=== PATIENT | female | born 1985 | race African-American/Black ===

== ENCOUNTER 2017-01-25 16:43 | Emergency (ER) | payer MEDICAID, OTHER ==
[~2017-01-25] VITALS: Ht 165.1 cm; Wt 124.7 kg
[2017-01-25] MEDS ORDERED: Morphine Sulfate 4mg/ml Inj IM ONE (17:00)
[2017-01-25] MEDS ORDERED: NORCO 5-325 TA1 EAC1 ORAL (19:14)
[2017-01-25] MEDS ORDERED: IBUPROFEN600 MG ORAL (19:14)
[2017-01-25 19:24] VITALS: BP 128/78
--- NOTE | 2017-01-25 20:50 | Emergency Room Report ---
History of Present Illness General Chief Complaint: Lower Extremity Injury Source: Patient Present Illness [facility] The patient is a 31-year-old female presenting for left foot pain after falling at work today. 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 She denies hitting her head or loss of consciousness. Pain is a 10 out of 10 dull ache to the left foot and does not radiate. Worse with movement. She denies previous injury to the foot. She denies any numbness or tingling. She states that she is unable to bear any weight on the left foot. She denies any other symptoms Allergies: Coded Allergies: No Known Allergies (Unverified , 01/25/17) Patient History Past Medical History: see triage record Pertinent Family History: none Now: No Reviewed Nursing Documentation: PMH: Agreed, PSxH: Agreed Nursing Documentation-PMH Past Medical History: No Stated History Review of Systems All Other Systems: negative except mentioned in HPI Physical Exam Vital Signs Date Time Temp Pulse Resp B/P (MAP) Pulse Ox O2 Delivery O2 Flow Rate FiO2 01/25/17 16:34 98.1 80 16 130/80 98 Room Air Sp02 EP Interpretation: reviewed, normal General Appearance: no apparent distress, alert, GCS 15, non-toxic Head: normocephalic, atraumatic Eyes: bilateral eye normal inspection, bilateral eye PERRL ENT: hearing grossly normal, normal pharynx, no angioedema, normal voice Neck: full range of motion, supple/symm/no masses Musculoskeletal: no calf tenderness, decreased range of motion - L ankle and L toes, swelling - L dorsum of foot, tender - TTP diffusely to L ankle and L dorsum of foot Neurologic: alert, oriented x3, responsive, motor strength/tone normal, sensory intact, speech normal Psychiatric: judgement/insight normal, memory normal, mood/affect normal, no suicidal/homicidal ideation Skin: normal color, no rash, warm/dry, well hydrated Lymphatic: no adenopathy Procedures Splinting Splinting : Consent: Verbal Location: L leg Hand-Made Type: plaster Splint: poserior short Pre-Proc Neuro Vasc Exam: normal Post-Proc Neuro Vasc Exam: normal Patient Tolerated: Well Complications: None Medical Decision Making PA Attestation Dr. Lemons is my supervising physician. Patient management was discussed with my supervising physician Diagnostic Impression: Primary Impression: Foot fracture, left Qualified Codes: S92.902A - Unspecified fracture of left foot, initial encounter for closed fracture ER Course The patient is a 31-year-old female presenting for left foot pain Ddx considered include but not limited to sprain/strain, fracture, contusion Physical exam: Musculoskeletal: There is diffuse tenderness to palpation over the left ankle and left dorsum of foot. Swelling over the dorsal aspect. No active range of motion of the left ankle or left toes due to pain. Sensation is intact DP pulse 2+ X-ray of the left ankle and left foot reveal fractures of the metatarsals The patient is given IM morphine for pain with good relief. Right leg posterior splint is placed with crutches She will FU with PMD and orthopedics. ER precautions given Other X-Ray Diagnostic Results Other X-Ray Diagnostic Results #1: X-Ray ordered: L foot # of Views/Limited Vs Complete: 3 View Indication: Pain EP Interpretation: Yes Interpretation: no dislocation, no soft tissue swelling, other - fracture of metatarsals Impression: Other - fracture Electronically Signed by: MD KENDRA Bravo Scribe Text I am acting as scribe for my supervising physician. My supervising physician's interpretation of the L foot xrays show fracture of metatarsals Other X-Ray Diagnostic Results #2: X-Ray ordered: L ankle # of Views/Limited Vs Complete: 3 View Indication: Pain EP Interpretation: Yes Interpretation: no dislocation, no soft tissue swelling, no fractures Impression: No acute disease Electronically Signed by: MD KENDRA Galindo Scribe Text I am acting as scribe for my supervising physician. My supervising physician's interpretation of the L ankle xrays are there are no fractures, dislocations or soft tissue swelling. Last Vital Signs Date Time Temp Pulse Resp B/P (MAP) Pulse Ox O2 Delivery O2 Flow Rate FiO2 01/25/17 19:24 98.0 76 16 128/78 98 Room Air Status: improved Disposition: HOME, SELF-CARE Condition: Improved Scripts Ibuprofen* (MOTRIN*) 600 Mg Tablet 600 MG ORAL Q8H Y for For Pain, #30 TAB 0 Refills Prov: JOHANNA GUIDO P.A. 01/25/17 Hydrocodone Bit/Acetaminophen 5-325* (NORCO 5-325 TABLET*) 1 Each Tablet 1 TAB ORAL Q6HR Y for For Pain, #15 TAB Prov: JOHANNA GUIDO 01/25/17 Patient Instructions: Metatarsal Fracture Additional Instructions: I discussed my findings with the patient. All questions and concerns have been answered. Treatment and medication compliance have been addressed. I advised the patient that they need to follow up with PMD in 3-5 days. Return to ED if pain remains or worsens, numbness or tingling occurs, new rash is noticed, fever is noticed, or if needed for any reason. Patient verbalized understanding of discharge instructions. JOHANNA GUIDO Jan 25, 2017 20:50
--- NOTE | 2017-01-26 09:47 | Diagnostic Imaging Report ---
Indication: PAIN left foot and ankle pain status post fall Technique: 3 views of the ankle Comparison: none Findings: There is a fracture of the fourth proximal metacarpal, better visualized on the radiograph reported separately. No acute ankle fracture. No dislocations. Joint spaces are preserved.. Impression: Negative for ankle fracture Positive for fourth metacarpal fracture-see separate foot radiograph report
--- NOTE | 2017-01-26 09:51 | Diagnostic Imaging Report ---
Indication: PAIN Technique: 3 views left foot Comparison: none Findings: There is a nondisplaced oblique fracture of the proximal fourth metacarpal shaft.. There is also a fracture of the medial base of the second metacarpal, visualized only on the oblique view. No other acute fractures. No dislocations. Small ossific density projects adjacent to the anterior superior corner of one of the cuneiforms, probably the middle, appears well-corticated. Impression: Positive for nondisplaced second and fourth metacarpal fractures This agrees with the preliminary interpretation provided by the emergency room physician
== END 2017-01-25 19:24 | disposition home or self-care (01) ==
LOC: EDBD 16:43 → EMR 18:02
DX: S62.395A Other fracture of fourth metacarpal bone, left hand, initial encounter for closed fracture (principal); S62.341A Nondisplaced fracture of base of second metacarpal bone, left hand, initial encounter for closed fracture; W01.0XXA Fall on same level from slipping, tripping and stumbling without subsequent striking against object, initial encounter; Y92.481 Parking lot as the place of occurrence of the external cause
CPT/HCPCS: 29515; 73610; 73630; 96372; 99284; J2270